=== PATIENT | male | born 1945 | race Caucasian/White ===

== ENCOUNTER 2016-11-01 13:02 | Emergency (ER) | payer MEDICARE, OTHER ==
[2016-11-01] MEDS ORDERED: MECLIZINE 12.5 MG TAB PO STA (15:25)
--- NOTE | 2016-11-01 15:34 | ED ---
General Adult HPI - General Chief complaint: Dizziness Stated complaint: Fall/blood in urine & stool Time Seen by Provider: 11/01/16 15:14 Source: patient, RN notes reviewed Mode of arrival: wheelchair Limitations: no limitations - History of Present Illness Initial comments: Chief complaint history of present illness a 70-year-old male here with a friend who drove him. Patient reports one week ago he had really severe acute headache last a short while. Then again off again headache since then. He was dizzy at the time. No nausea no vomiting or sweats. No evidence or complaints of meningismus or stiff neck. Patient reports just generally feels weak through the legs. He is very active. Patient reports that he restarted blood pressure pills which he had been off for many years the day he had a headache. - Related Data Home Medications Medication Instructions Recorded Confirmed Multivitamins, Thera [Multivitamin] 1 tab PO DAILY 11/01/16 11/01/16 Previous Rx's Medication Instructions Recorded cloNIDine HCL [Catapres] 0.1 mg PO TID #90 tab 09/20/14 Allergies Allergy/AdvReac Type Severity Reaction Status Date / Time No Known Allergies Allergy Verified 11/01/16 15:39 Review of Systems ROS Statement: Those systems with pertinent positive or pertinent negative responses have been documented in the HPI. Review of systems no headache now no blurred vision no stiff neck no meningismus. No chest pain shortness breath GI/ proms. His chronic mid abdominal discomfort he had ventral hernia repair 2 years ago. Reports he works hard and he thinks may have strained this but is not complaining of abdominal pain. He also reports that prior to the headache last week he noticed a small amount of blood possibly in the stool but he has noticed comes out of the urine as well. Does not know if he has hemorrhoids. Denies any trouble with bowel movements or urinating. Appetite unchanged. No neuro deficits. All systems were otherwise reviewed. Past medical problems high blood pressure, hernia repair. Family history noncontributory no known ALLERGIES. Encouraged not to smoke. ROS Other: All systems not noted in ROS Statement are negative. Past Medical History Past Medical History: Hypertension Additional Past Medical History / Comment(s): HX HERNIA'S History of Any Multi-Drug Resistant Organisms: None Reported Past Surgical History: Hernia Repair Additional Past Surgical History / Comment(s): UMBILICAL HERNIA REPAIR Past Anesthesia/Blood Transfusion Reactions: No Reported Reaction Past Psychological History: No Psychological Hx Reported Smoking Status: Former smoker Past Alcohol Use History: Occasional Past Drug Use History: None Reported General Exam - General Exam Comments Initial Comments: General: The patient is awake and alert, here because he had a headache one week ago and on again off again headache since then but not as bad as the first one. Also prior to the headache he noticed blood in the stool. He thinks he may all for possibly culture the urine. Vital signs show temperature 97.3 pulse 72 respiratory rate 18 pulse ox on percent room air blood pressure 183/73. The patient's elevated blood pressure was noted that he is clinically following up with his family physician. Eye: Pupils are equal, round and reactive to light, extra-ocular movements are intact ; there is normal conjunctiva bilaterally. No signs of icterus. Ears, nose, mouth and throat: There are moist mucous membranes and no oral lesions. Neck: The neck is supple, there is no tenderness , no meningismus, no stiff neck. No anterior cervical lymphadenopathy. Cardiovascular: There is a regular rate and rhythm. No murmur, rub or gallop is appreciated. Respiratory: Lungs are clear to auscultation, respirations are non-labored, breath sounds are equal. No wheezes, stridor, rales, or rhonchi. Gastrointestinal: Soft, non-distended, non-tender abdomen without masses or organomegaly noted. There is no rebound or guarding present. No CVA tenderness. Bowel sounds are unremarkable. Well-healed ventral hernia repair. Rectal examination was positive for blood on examination. Also a mass is appreciated within the depth of finger examination. The prostate appears firm as well. Back: There is no tenderness to palpation in the midline. There is no obvious deformity. No rashes noted. Musculoskeletal: Normal ROM, no tenderness, There is no pedal edema. There is no calf tenderness or swelling. Sensation intact. Pulses equal bilaterally 2+. Neurological: CN II-XII intact, There are no obvious motor or sensory deficits. Coordination appears grossly intact. Speech is normal. No focal or lateralizing findings Skin: Skin is warm and dry and no rashes or lesions are noted. Psychiatric: Cooperative, appropriate mood & affect, normal judgment. Limitations: no limitations Course Vital Signs 11/01/16 11/01/16 14:04 16:00 Temperature 97.3 F L Pulse Rate 72 68 Respiratory 18 15 Rate Blood Pressure 185/73 161/71 O2 Sat by Pulse 100 98 Oximetry EKG Findings - EKG Comments: EKG Findings:: EKG was done and reviewed at 1419 showing sinus bradycardia rate [address] elevation no ectopy no ischemic changes. NC interval is 148 QRS 94 QT [address] Menchaca Medical Decision Making - Medical Decision Making Medical decision making; patient's white count 6.8 hemoglobin 13 hematocrit 40, platelets 258, INR 2.8. Patient denies being on any blood thinners. Potassium is 4.1 with a BUN 13 creatinine 0.8 with a GFR greater than 60. Troponin less than 0.012. Leukos 104. Urine was done and no evidence of blood. CT of the brain was done and reviewed by radiologist his impression is there was no evidence of acute intracranial hemorrhage, acute ischemic changes, mass, mass effect, or extra-axial fluid collection. There is no effacement of cerebral sulci of basal subarachnoid sisters. There is no hydrocephalus. There is no midline shift. Cobb-white matter distinction is preserved. There are moderate to severe patchy periventricular and deep white matter hypodensities especially in the parietal lobes. Paranasal sinuses and mastoid air cells are well pneumatized. Orbits and globes are intact. Impression; no acute intracranial abnormality seen. Moderate to severe patchy white matter hypodensities, likely chronic small vessel ischemic disease. As read by Dr. Brennan The case discussed with Dr. Franco, the patient's surgeon. He'll see the patient in the office in the morning. Plan will be made for the follow-up of the palpable mass in the rectum. - Lab Data Result diagrams: 11/01/16 15:44 11/01/16 15:44 Lab Results 11/01/16 11/01/16 11/01/16 Range/Units 15:44 15:44 15:44 WBC 6.8 (3.8-10.6) k/uL RBC 4.47 (4.30-5.90) m/uL Hgb 13.5 (13.0-17.5) gm/dL Hct 40.6 (39.0-53.0) % MCV 90.7 (80.0-100.0) fL MCH 30.2 (25.0-35.0) pg MCHC 33.3 (31.0-37.0) g/dL RDW 13.2 (11.5-15.5) % Plt Count 258 (150-450) k/uL Neutrophils % 76 % Lymphocytes % 15 % Monocytes % 7 % Eosinophils % 0 % Basophils % 1 % Neutrophils # 5.1 (1.3-7.7) k/uL Lymphocytes # 1.0 (1.0-4.8) k/uL Monocytes # 0.4 (0-1.0) k/uL Eosinophils # 0.0 (0-0.7) k/uL Basophils # 0.1 (0-0.2) k/uL PT (9.0-12.0) sec INR (<1.1) Sodium 141 (137-145) mmol/L Potassium 4.1 (3.5-5.1) mmol/L Chloride 103 (98-107) mmol/L Carbon Dioxide 26 (22-30) mmol/L Anion Gap 12 mmol/L BUN 13 (9-20) mg/dL Creatinine 0.81 (0.66-1.25) mg/dL Est GFR (MDRD) Af Amer >60 (>60 ml/min/1.73 sqM) Est GFR (MDRD) Non-Af >60 (>60 ml/min/1.73 sqM) Glucose 104 H (74-99) mg/dL Plasma Lactic Acid Clayton 1.3 (0.7-2.0) mmol/L Calcium 9.9 (8.4-10.2) mg/dL Total Bilirubin 0.8 (0.2-1.3) mg/dL AST 22 (17-59) U/L ALT 34 (21-72) U/L Alkaline Phosphatase 51 (38-126) U/L Troponin I (0.000-0.034) ng/mL Total Protein 7.1 (6.3-8.2) g/dL Albumin 4.5 (3.5-5.0) g/dL Urine Color Urine Appearance (Clear) Urine pH (5.0-8.0) Ur Specific Franklin (1.001-1.035) Urine Protein (Negative) Urine Glucose (UA) (Negative) Urine Ketones (Negative) Urine Blood (Negative) Urine Nitrate (Negative) Urine Bilirubin (Negative) Urine Urobilinogen (<2.0) mg/dL Ur Leukocyte Esterase (Negative) 11/01/16 11/01/16 11/01/16 Range/Units 15:44 15:44 16:56 WBC (3.8-10.6) k/uL RBC (4.30-5.90) m/uL Hgb (13.0-17.5) gm/dL Hct (39.0-53.0) % MCV (80.0-100.0) fL MCH (25.0-35.0) pg MCHC (31.0-37.0) g/dL RDW (11.5-15.5) % Plt Count (150-450) k/uL Neutrophils % % Lymphocytes % % Monocytes % % Eosinophils % % Basophils % % Neutrophils # (1.3-7.7) k/uL Lymphocytes # (1.0-4.8) k/uL Monocytes # (0-1.0) k/uL Eosinophils # (0-0.7) k/uL Basophils # (0-0.2) k/uL PT 26.6 H (9.0-12.0) sec INR 2.8 (<1.1) Sodium (137-145) mmol/L Potassium (3.5-5.1) mmol/L Chloride (98-107) mmol/L Carbon Dioxide (22-30) mmol/L Anion Gap mmol/L BUN (9-20) mg/dL Creatinine (0.66-1.25) mg/dL Est GFR (MDRD) Af Amer (>60 ml/min/1.73 sqM) Est GFR (MDRD) Non-Af (>60 ml/min/1.73 sqM) Glucose (74-99) mg/dL Plasma Lactic Acid Clayton (0.7-2.0) mmol/L Calcium (8.4-10.2) mg/dL Total Bilirubin (0.2-1.3) mg/dL AST (17-59) U/L ALT (21-72) U/L Alkaline Phosphatase (38-126) U/L Troponin I <0.012 (0.000-0.034) ng/mL Total Protein (6.3-8.2) g/dL Albumin (3.5-5.0) g/dL Urine Color Yellow Urine Appearance Clear (Clear) Urine pH 7.5 (5.0-8.0) Ur Specific Franklin 1.011 (1.001-1.035) Urine Protein Negative (Negative) Urine Glucose (UA) Negative (Negative) Urine Ketones 1+ H (Negative) Urine Blood Negative (Negative) Urine Nitrate Negative (Negative) Urine Bilirubin Negative (Negative) Urine Urobilinogen <2.0 (<2.0) mg/dL Ur Leukocyte Esterase Negative (Negative) Disposition Clinical Impression: Rectal mass, Headache Disposition: HOME SELF-CARE Condition: Serious Instructions: Rectal Bleeding (ED) Additional Instructions: Follow-up with Dr. Franco tomorrow in office for further examination and plan for evaluation of the rectal mass. Time of Disposition: 17:16
[2016-11-01 16:09] LABS: Basophils # (A) 0.1 k/uL (0-0.2); Basophils % (A) 1 %; CH 31.5; CHCM 34.9; Eosinophils % (A) 0 %; HCT 40.6 % (39.0-53.0); HDW 2.51; HGB 13.5 gm/dL (13.0-17.5); Luc % (Auto) 2; Lymphocytes % (A) 15 %; MCH 30.2 pg (25.0-35.0); MCHC 33.3 g/dL (31.0-37.0); MCV 90.7 fL (80.0-100.0); Mean Platelet Volume 7.4; Monocytes # (A) 0.4 k/uL (0-1.0); Monocytes % (A) 7 %; Neutrophils # (A) 5.1 k/uL (1.3-7.7); Neutrophils % (A) 76 %; RBC 4.47 m/uL (4.30-5.90); RDW 13.2 % (11.5-15.5); WBC 6.8 k/uL (3.8-10.6); WBC (Perox) 7.27
[2016-11-01 16:16] LABS: INR 2.8 (<1.1); Prothrombin Time 26.6 sec (9.0-12.0)
[2016-11-01 16:19] LABS: ALT 34 U/L (21-72); AST 22 U/L (17-59); Alkaline Phosphatase 51 U/L (38-126); Anion Gap 12 mmol/L; Blood Urea Nitrogen 13 mg/dL (9-20); Calcium 9.9 mg/dL (8.4-10.2); Carbon Dioxide 26 mmol/L (22-30); Chloride 103 mmol/L (98-107); Glucose 104 mg/dL (74-99); Non-African American GFR(MDRD) >60 (>60 ml/min/1.73 sqM); Potassium 4.1 mmol/L (3.5-5.1); Sodium 141 mmol/L (137-145); Total Bilirubin 0.8 mg/dL (0.2-1.3); Total Protein 7.1 g/dL (6.3-8.2)
--- NOTE | 2016-11-01 16:31 | CT ---
EXAMINATION TYPE: CT brain wo con DATE OF EXAM: 11/01/2016 4:16 PM COMPARISON: NONE HISTORY: 70-year-old male with dizziness on and off for 2 weeks TECHNIQUE: Examination was done in axial plane without intravenous contrast. Coronal and sagittal reconstructio ns performed. CT DLP: 1108.4 mGycm Automated exposure control for dose reduction was used. FINDINGS: There is no evidence of acute intracranial hemorrhage, acute ischemic changes, mass, mass-effect, or extra-axial fluid collection. There is no effacement of cerebral sulci or basal subarachnoid cister ns. There is no hydrocephalus. There is no midline shift. Menendez-white matter distinction is preserv ed. There are moderate to severe patchy ventricular and deep white matter hypodensities especially in the parietal lobes. Paranasal sinuses and mastoid air cells are well pneumatized. Orbits and globes are intact. IMPRESSION: No acute intracranial abnormality seen. Moderate to severe patchy white matter hypodensities, likely chronic small vessel ischemic disease.
[2016-11-01 17:07] LABS: Appearance,Urine Clear (Clear); Bilirubin,Urine Negative (Negative); Glucose,Urine (UA) Negative (Negative); Ketones,Urine 1+ (Negative); Leukocyte Esterase,Urine Negative (Negative); Nitrite,Urine Negative (Negative); PH, Urine 7.5 (5.0-8.0); Protein,Urine Negative (Negative); Specific Gravity,Urine 1.011 (1.001-1.035); UA Billing (MACRO vs. MICRO) CHEM; Urobilinogen,Urine <2.0 mg/dL (<2.0)
[2016-11-01 17:50] VITALS: BP 144/66; PULSE 66; RESP 14; TEMP 96.7
== END 2016-11-01 17:48 | disposition home or self-care (01) ==
LOC: EC 13:02
DX: K62.89 Other specified diseases of anus and rectum (principal); R51 Headache; R42 Dizziness and giddiness; I10 Essential (primary) hypertension; Z87.891 Personal history of nicotine dependence
CPT/HCPCS: 36415; 70450; 80053; 81003; 82272; 83605; 84484; 85025; 85610; 93005; 99284

== ENCOUNTER → 2017-01-01 | Outpatient (CLI) | payer MEDICARE ==
[2017-01-01 10:08] LABS: CHCM 32.9; HCT 42.1 % (39.0-53.0); HDW 2.38; HGB 13.9 gm/dL (13.0-17.5); MCH 31.2 pg (25.0-35.0); MCHC 32.9 g/dL (31.0-37.0); MCV 94.8 fL (80.0-100.0); Mean Platelet Volume 7.5; RBC 4.44 m/uL (4.30-5.90); RDW 13.1 % (11.5-15.5); WBC 6.7 k/uL (3.8-10.6)
[2017-01-01 10:24] LABS: Anion Gap 8 mmol/L; Blood Urea Nitrogen 16 mg/dL (9-20); Calcium 9.5 mg/dL (8.4-10.2); Carbon Dioxide 29 mmol/L (22-30); Chloride 105 mmol/L (98-107); Glucose 108 mg/dL (74-99); Non-African American GFR(MDRD) >60 (>60 ml/min/1.73 sqM); Potassium 4.4 mmol/L (3.5-5.1); Sodium 142 mmol/L (137-145)
== END | disposition home or self-care (01) ==
LOC: LABWHC1 09:08
PROVIDERS: ATTEND Surgery
DX: C20 Malignant neoplasm of rectum (principal)
CPT/HCPCS: 36415; 80048; 85027

== ENCOUNTER → 2017-01-04 | Outpatient (CLI) | payer MEDICARE, OTHER ==
--- NOTE | 2017-01-04 09:27 | CT ---
EXAMINATION TYPE: CT abdomen pelvis w con DATE OF EXAM: 01/04/2017 8:40 AM COMPARISON: NONE HISTORY: 71-year-old male history of rectal ca TECHNIQUE: Contiguous axial scanning of the abdomen and pelvis following administration of 100 ml Omn ipaque 300 IV contrast. Delayed images through the kidneys and coronal/sagittal reconstructions perf ormed. CT DLP: 364.8 mGycm Automated exposure control for dose reduction was used. FINDINGS: Heart is normal size without pericardial effusion. Lung bases clear without pleural effusion. Nonspecific tiny 5 mm hypodensity anterior segment 4 left hepatic lobe axial image 15 and segment 3 l eft hepatic lobe, axial image 26. A couple additional tiny nonspecific hypodensities in the inferior right hepatic lobe, axial image 32 and 30. Portal venous system is patent. Mild prominence of the bile duct with normal distal tapering with a c aliber of 6 mm. Gallbladder, adrenal glands, kidneys, spleen within normal limits. There is mild prominence of the ma in pancreatic duct in the level of the pancreatic neck and head at 3.3 mm. Otherwise, the pancreas ap pears within normal limits. Moderate atherosclerotic calcifications throughout the abdominal aorta and iliac arteries. There is i ncidental retroaortic left renal vein. No dilated small bowel, free fluid, or free air. Normal appendix. Oral contrast has progressed to the splenic flexure. There is moderate to large stool burden and a mi ldly redundant sigmoid colon. Bladder is partially urine distended. Prostate gland is enlarged measuring 5.9 cm wide with a marked heterogeneous areas of enhancement and some areas of more nodular enhancement such as on the left on axial image 66. There is an irregular mural based mass along the right lateral wall of the rectum measuring 2.7 cm AP by 1.3 cm wide by 3.3 cm craniocaudal, axial image 67 and coronal image 66. No perirectal lymphadenopathy or other enlarged pelvic lymphadenopathy seen. No abnormal fluid collec tion in the pelvis. Bones: Advanced degenerative changes at the right greater than left hips. Degenerative bridging bony ankylosis at the SI joints. No osseous destructive process. IMPRESSION: 1. MURAL BASED MASS ALONG THE RIGHT LATERAL WALL OF THE RECTUM MEASURING UP TO 3.3 CM COMPATIBLE WITH PATIENT'S RECTAL CANCER. 2. APPROXIMATELY 4 NONSPECIFIC 5 MM HYPODENSE LIVER LESIONS. THESE MAY REPRESENT CYSTS. DEPENDING ON THE CLINICAL SUSPICION FOR EARLY METASTATIC DISEASE, CONSIDERATION CAN BE GIVEN TO LIVER MRI. OTHERW ISE, THESE CAN BE FOLLOWED. 3. NO LYMPHADENOPATHY OR OTHER FINDINGS TO SUGGEST METASTATIC DISEASE TO THE ABDOMEN OR PELVIS. 4. MARKED PROSTATOMEGALY MEASURING 6 CM WITH EXTENSIVE HETEROGENEOUS ENHANCEMENT. FINDINGS MAY REPRES ENT BPH. CORRELATE WITH PHYSICAL EXAM FINDINGS, PSA VALUES, AND POSSIBLE PROSTATE ULTRASOUND TO EXCLU DE UNDERLYING PROSTATE CANCER.
== END | disposition home or self-care (01) ==
LOC: RADCTMAIN 07:28
PROVIDERS: ATTEND Surgery
DX: C20 Malignant neoplasm of rectum (principal)
CPT/HCPCS: 74177; Q9967

== ENCOUNTER → 2017-01-17 | Outpatient (CLI) | payer MEDICARE ==
[2017-01-17 11:32] LABS: Basophils % (A) 1 %; CH 30.9; CHCM 33.5; Eosinophils % (A) 1 %; HCT 39.5 % (39.0-53.0); HDW 2.32; HGB 13.3 gm/dL (13.0-17.5); Luc # (Auto) 0.12; Luc % (Auto) 2; Lymphocytes # (A) 1.1 k/uL (1.0-4.8); Lymphocytes % (A) 16 %; MCH 31.3 pg (25.0-35.0); MCHC 33.7 g/dL (31.0-37.0); MCV 92.8 fL (80.0-100.0); Mean Platelet Volume 6.6; Monocytes # (A) 0.4 k/uL (0-1.0); Monocytes % (A) 6 %; Neutrophils # (A) 4.9 k/uL (1.3-7.7); Neutrophils % (A) 75 %; RBC 4.26 m/uL (4.30-5.90); RDW 13.2 % (11.5-15.5); WBC 6.6 k/uL (3.8-10.6); WBC (Perox) 7.23
[2017-01-17 12:24] LABS: Prostate Specific Antigen 4.48 ng/mL (0.00-4.00)
== END | disposition home or self-care (01) ==
LOC: LABWHC1 11:13
PROVIDERS: ATTEND Radiology Radiation Oncology
DX: C20 Malignant neoplasm of rectum (principal)
CPT/HCPCS: 36415; 82378; 84153; 85025

== ENCOUNTER → 2017-02-20 | Outpatient (CLI) | payer OTHER ==
[2017-02-20 16:27] LABS: Appearance,Urine Clear (Clear); Bilirubin,Urine Negative (Negative); Glucose,Urine (UA) Negative (Negative); Ketones,Urine Negative (Negative); Leukocyte Esterase,Urine Negative (Negative); Nitrite,Urine Negative (Negative); PH, Urine 6.5 (5.0-8.0); Protein,Urine Trace (Negative); Specific Gravity,Urine 1.024 (1.001-1.035); UA Billing (MACRO vs. MICRO) CHEM; Urobilinogen,Urine <2.0 mg/dL (<2.0)
== END | disposition home or self-care (01) ==
LOC: LABWHC1 15:51
PROVIDERS: ATTEND Radiology Radiation Oncology
DX: C20 Malignant neoplasm of rectum (principal); R30.0 Dysuria
CPT/HCPCS: 81003; 87086

== ENCOUNTER → 2017-04-03 | Outpatient (CLI) | payer MEDICARE, OTHER ==
[2017-04-03 13:09] LABS: Blood Urea Nitrogen 13 mg/dL (9-20); Non-African American GFR(MDRD) >60 (>60 ml/min/1.73 sqM)
--- NOTE | 2017-04-03 16:34 | CT ---
EXAMINATION TYPE: CT ChestAbdPelvis w con DATE OF EXAM: 04/03/2017 COMPARISON: Prior nuclear medicine PET/CT 01/13/2017, CT abdomen pelvis 01/04/2017 HISTORY: Rectal carcinoma, C 20 CT DLP: 495.1 mGycm Automated exposure control for dose reduction was used. CONTRAST: CT scan of the chest, abdomen and pelvis is performed with oral and intravenous contrast, 100 cc Omni 300 IV FINDINGS: LUNGS: Emphysematous changes are present, apical bullous disease present on the right MEDIASTINUM: There are no greater than 1 cm hilar or mediastinal lymph nodes. Coronary artery calcif ications are present No pericardial effusion is seen. AORTA: Aortic root appears dilated at 4.6 cm although there is motion artifact. OTHER: There is a spinal curvature, associated degenerative disc changes in the visualized spine LIVER/GB: Liver shows low attenuation likely due to fatty infiltration. Subcentimeter hypodense foci are present, at least 3 lesions which statistically likely represent cysts. Gallbladder is unremarkab le. PANCREAS: No significant abnormality is seen. SPLEEN: No significant abnormality is seen. ADRENALS: No significant abnormality is seen. KIDNEYS: No significant abnormality is seen. Retroaortic left renal vein is present. REPRODUCTIVE ORGANS: Prostate is enlarged and shows associated calcification. BOWEL: Colonic wall thickening is indeterminate. There is scattered diverticular changes in the sigm oid colon. No evident bowel obstruction. The appendix is normal. Small bowel folds show some mild thi ckening. FREE AIR: No Free Air visible. ASCITES: None seen. RETROPERITONEAL ADENOPATHY: No retroperitoneal adenopathy is seen. LYMPH NODES: No greater than 1 cm abdominal or pelvic lymph nodes are appreciated. URINARY BLADDER: No significant abnormality is seen. PELVIC ADENOPATHY: None visualized. OSSEOUS STRUCTURES: Spinal curvature, degenerative disc changes are present. There are facet arthrop athy changes at the lower lumbar spine. IMPRESSION: Emphysematous changes 1 apices. Coronary artery disease. Ascending aortic aneurysm, follo w-up recommended. Fatty infiltration of the liver. Diverticulosis. Correlate to exclude enteritis, co litis. Prostate enlargement. Additional findings above.
== END | disposition home or self-care (01) ==
LOC: RADCTMAIN 12:28
PROVIDERS: ATTEND Radiology Radiation Oncology
DX: C20 Malignant neoplasm of rectum (principal); J43.9 Emphysema, unspecified; I71.4 Abdominal aortic aneurysm, without rupture; K76.0 Fatty (change of) liver, not elsewhere classified; K57.90 Diverticulosis of intestine, part unspecified, without perforation or abscess without bleeding
CPT/HCPCS: 82565; 84520; 71260; 74177; 36415; Q9967

== ENCOUNTER 2017-05-23 08:43 | Day surgery (SDC) | payer MEDICARE, OTHER ==
[2017-05-22 10:35] VITALS: BMI 21.1
[~2017-05-23 08:43] MED LIST: HYDROmorphone 1 MG/ML 1 ML SYRINGE IVP PRN; LACTATED RINGERS 1,000 ML IV SCH; LIDOCAINE 1% 20 ML VIAL (10MG/ML) FOR IV START INTRADERMA PRN; ONDANSETRON 4 MG/2 ML VIAL IVP PRN; Pre Op ABX Message 1 EACH MISC MISCELLANE ONE
[2017-05-23 09:39] VITALS: RESP 16; TEMP 98.1
[2017-05-23] MEDS ORDERED: ceFAZolin 2 GM in SODIUM CHLORIDE 0.9% 100 ML IVPB ONE (09:47)
--- NOTE | 2017-05-23 09:54 | P.GSHP ---
History of Present Illness H&P Date: 05/23/17 Chief Complaint: Rectal cancer Patient is known to our service. He was diagnosed with rectal cancer. He has undergone neoadjuvant chemoradiation. He requires a Port-A-Cath for ongoing chemotherapy at this point. He has not had one previously Past Medical History Past Medical History: Cancer, Hypertension Additional Past Medical History / Comment(s): HX HERNIA'S; Rectal CA; has had radiation & chemotherapy History of Any Multi-Drug Resistant Organisms: None Reported Past Surgical History: Hernia Repair Additional Past Surgical History / Comment(s): UMBILICAL HERNIA REPAIR Past Anesthesia/Blood Transfusion Reactions: No Reported Reaction Smoking Status: Former smoker - Past Family History Mother Family Medical History: No Reported History Medications and Allergies Home Medications Medication Instructions Recorded Confirmed Type Multivitamins, Thera [Multivitamin] 1 tab PO DAILY 11/01/16 05/22/17 History Allergies Allergy/AdvReac Type Severity Reaction Status Date / Time No Known Allergies Allergy Verified 05/23/17 09:39 Surgical - Exam Vital Signs Temp Pulse Resp BP Pulse Ox 98.1 F 63 16 168/76 99 05/23/17 09:37 05/23/17 09:37 05/23/17 09:37 05/23/17 09:37 05/23/17 09:37 Physical exam: General: Well-developed, well-nourished HEENT: Normocephalic, sclerae nonicteric Abdomen: Nontender, nondistended Extremities: No edema Neuro: Alert and oriented Assessment and Plan (1) Rectal cancer Narrative/Plan: Will proceed with Port-A-Cath placement. Risks of bleeding infection pneumothorax DVT catheter malfunction were discussed. He understands and wishes to proceed. Status: Acute
[2017-05-23 10:21] LABS: INR 1.1 (<1.2); Partial Thromboplastin Time 24.2 sec (22.0-30.0); Prothrombin Time 11.2 sec (9.0-12.0)
[2017-05-23] MEDS ORDERED: HEPARIN SODIUM,PORCINE 5,000 UNIT/ML 1 ML VIAL SQ ONE (10:34)
[2017-05-23] MEDS ORDERED: MIDAZOLAM 2 MG/2 ML VIAL ONE (10:36)
[2017-05-23] MEDS ORDERED: PROPOFOL 10 MG/ML 20 ML VIAL IV ONE (10:36)
[2017-05-23] MEDS ORDERED: fentaNYL (PF) 50 MCG/ML 2 ML AMP ONE (10:36)
[2017-05-23] MEDS ORDERED: HEPARIN SODIUM,PORCINE 100 UNIT/ML 5 ML VIAL IV ONE (11:07)
[2017-05-23] MEDS ORDERED: LIDOCAINE (PF) 10 MG/ML 2 ML VIAL SQ ONE (11:08)
[2017-05-23] MEDS ORDERED: HYDROcodone/APAP 5-325MG 1 EACH TAB PO PRN (11:14)
[2017-05-23] MEDS ORDERED: NALOXONE 0.4 MG/ML 1 ML VIAL IV PRN (11:14)
--- NOTE | 2017-05-23 11:16 | P.OP ---
Date of Procedure: 05/23/17 Preoperative Diagnosis: Postoperative Diagnosis: Procedure(s) Performed: PREOPERATIVE DIAGNOSIS: Rectal cancer POSTOPERATIVE DIAGNOSIS: Same PROCEDURE: Port-A-Cath placement SURGEON: Chelle EBL: Minimal ANESTHESIA: Sedation COMPLICATIONS: None OPERATIVE PROCEDURE: Patient was brought and placed on the operative table in the supine position. The patient was sedated per anesthesia that time. The chest and neck were prepped and draped in usual sterile fashion. The ultrasound probe was used to identify the location of the right internal jugular vein. The skin was localized with lidocaine. The Seldinger needle was advanced into the IJ under ultrasound guidance. The wire was advanced through the needle under fluoroscopic guidance into the superior vena cava. A port pocket was created in the right infraclavicular location. The catheter was tunneled from the wire entrance site to the port pocket. The port was then connected to the catheter. The dilator introducer was threaded over the guidewire. The guidewire and dilator were then removed. The catheter was advanced through the introducer and introducer was then removed. The tip was seen to be in the right atrial junction. Port was flushed with both saline and a Hep-Lock solution. There was good flow both in and out of the port. The port was sutured in underlying tissues using 3-0 silk sutures. The subcutaneous tissues were reapproximated using 3-0 Vicryl sutures and the skin at both locations using 4-0 Monocryl sutures. Steri-Strips and sterile dressings then applied. DISPOSITION: Stable to recovery room Implants: Indications for Procedure: Operative Findings: Description of Procedure:
--- NOTE | 2017-05-23 11:39 | FL ---
Fluoroscopy HISTORY: Port-A-Cath insertion 2 seconds fluoroscopy time supplied to the referring clinician. 1 intraoperative C-arm images docume nt the procedure. See dictated report from general surgery.
--- NOTE | 2017-05-23 11:48 | XR ---
EXAMINATION TYPE: XR chest 1V confirm line [facility] DATE OF EXAM: 05/23/2017 COMPARISON: NONE HISTORY: Status post central venous catheter placement TECHNIQUE: Single frontal view of the chest is obtained. FINDINGS: Port-A-Cath is present in the right pectoral region, distal tip of the catheter overlying the region of the superior vena cava. Patient is rotated. Right jugular access. High riding right aydin ulder may be due to chronic rotator cuff tear. There is no pneumothorax or pleural effusion. IMPRESSION: No evident complication status post central venous catheter placement.
[2017-05-23] MEDS ORDERED: HYDROcodone/APAP 5-325MG 1 EACH TAB PO ONE (11:57)
[2017-05-23 12:08] VITALS: BP 160/70; PULSE 58
== END 2017-05-23 12:41 | disposition home or self-care (01) ==
LOC: OR 08:43
PROVIDERS: ATTEND Surgery
DX: C20 Malignant neoplasm of rectum (principal); I10 Essential (primary) hypertension; Z87.891 Personal history of nicotine dependence
CPT/HCPCS: 77001; 85610; 85730